=== PATIENT | male | born 1965 | race Caucasian/White ===

== ENCOUNTER 2019-08-07 13:59 | Emergency (ER) | payer BC, OTHER ==
[~2019-08-07] VITALS: Ht 180.3 cm; Wt 94.0 kg
--- NOTE | 2019-08-07 14:34 | NUR ---
PATIENT BROUGHT BACK FROM TRIAGE AFTER CUTTING FINGER LAST NIGHT. "I TOOK A SHOWER LAST NIGHT AND SLIPPED THERE WAS A DRAWER OPEN AND I CAUGHT MY FALL ON IT, I JUST CUT MY FINGER OPEN. CMS INTACT. [facility] SENT PATIENT HERE.
[2019-08-07] MEDS ORDERED: LIDOCAINE-MPF 1%, 5ML ONE (15:15)
[2019-08-07] MEDS ORDERED: LIDOCAINE-MPF 1%, 5ML INFIL ONE (15:30)
--- NOTE | 2019-08-07 16:02 | NUR ---
SURTURES PLACED BY MARIS STINSON
[2019-08-07 16:04] VITALS: BP 159/96
--- NOTE | 2019-08-07 16:04 | NUR ---
DISCHARGE INSTRUCTIONS REVIEWED
== END 2019-08-07 16:16 | disposition home or self-care (01) ==
LOC: ED 15:27
DX: S61.211A Laceration without foreign body of left index finger without damage to nail, initial encounter (principal); Z72.89 Other problems related to lifestyle; W01.0XXA Fall on same level from slipping, tripping and stumbling without subsequent striking against object, initial encounter; Y93.89 Activity, other specified; Y92.098 Other place in other non-institutional residence as the place of occurrence of the external cause; Y99.8 Other external cause status
CPT/HCPCS: 12041; 99284